=== PATIENT | female | born 1960 | race Caucasian/White ===

== ENCOUNTER 2021-01-22 11:47 | Emergency (ER) | payer MEDICAID ==
[~2021-01-22] VITALS: Ht 177.8 cm; Wt 115.9 kg
[2021-01-22 11:48] VITALS: BP 137/83
[2021-01-22] MEDS ORDERED: bacitracin 15gm ointment TP ONE (12:10)
== END 2021-01-22 12:18 | disposition home or self-care (01) ==
LOC: ER 11:47
DX: S20.312A Abrasion of left front wall of thorax, initial encounter (principal); M54.2 Cervicalgia; V43.52XA Car driver injured in collision with other type car in traffic accident, initial encounter; Y93.89 Activity, other specified; Y92.488 Other paved roadways as the place of occurrence of the external cause; Y99.8 Other external cause status
CPT/HCPCS: 99283